=== PATIENT | female | born 1965 | race African-American/Black ===

== ENCOUNTER 2018-07-26 13:44 | Emergency (ER) | payer OTHER ==
[~2018-07-26] VITALS: Ht 172.7 cm; Wt 73.9 kg
[~2018-07-26 13:44] MED LIST: AMLODIPINE BESY10 MG PO; BENTYL 20 MG TA20 M1 PO; LOPERAMIDE 2 MG2 M1 PO; METFORMIN HCL500 MG PO; MICARDIS 80 MG80 MG PO; ZOFRAN ODT4 MG PO
[2018-07-26 17:59] LABS: BASOPHILS 0.5 % (0.0-2.0); EOSINOPHILS 0.7 % (0.0-3.0); HEMATOCRIT 42.7 % (37.0-47.0); HEMOGLOBIN 13.8 gm/dL (12.0-15.0); LYMPHOCYTES 32.4 % (24.0-44.0); MCH 26.3 pg (26.0-34.0); MCHC 32.2 g/dL (28.0-37.0); MCV 81.6 fL (80.0-100.0); MONOCYTES 10.7 % (1.0-8.0); PLATELET COUNT 218 thou/uL (150-400); POLYS 55.7 % (36.0-66.0); RBC 5.24 mil/uL (4.20-5.00); RDW 14.1 % (10.5-14.5); WBC 5.3 thou/uL (4.0-11.0)
[2018-07-26 18:10] LABS: CALCIUM 9.1 mg/dL (8.5-10.1)
[2018-07-26 18:16] LABS: ALBUMIN 3.7 g/dL (3.4-5.0); TOTAL BILIRUBIN 0.3 mg/dL (<0.1-1.0); TOTAL PROTEIN 7.8 g/dL (6.4-8.2)
[2018-07-26 20:00] VITALS: BP 131/74
== END 2018-07-26 20:00 | disposition home or self-care (01) ==
LOC: ER 13:44
PROVIDERS: Physician Assistant
DX: H53.8 Other visual disturbances (principal); I10 Essential (primary) hypertension; E11.9 Type 2 diabetes mellitus without complications; Z88.1 Allergy status to other antibiotic agents; Z79.899 Other long term (current) drug therapy